=== PATIENT | male | born 1980 | race Caucasian/White ===

== ENCOUNTER 2017-03-30 19:42 | Emergency (ER) | payer SELFPAY ==
[2017-03-30 19:42] VITALS: BMI 25.3
[2017-03-30 19:57] VITALS: BP 130/85; PULSE 89; RESP 18; TEMP 98.6; O2SAT 95
[2017-03-30] MEDS ORDERED: Sodium Chloride 0.9% 1,000 ML IV STA (20:01)
--- NOTE | 2017-03-30 20:04 | ED PDOC ---
Arrival/HPI - General Chief Complaint: Abdominal Pain Time Seen by Provider: 03/30/17 19:47 - History of Present Illness Narrative History of Present Illness (Text): 03/30/17 20:01 36 yo male, no prior hx presents with epigastric abdominal pain since yesterday. pt states pain started after he consumed etoh yesterday. denies drinkning today. reports nausea, no vomiting, no diarrhea, no other complaints. Past Medical History - Infectious Disease Hx of Infectious Diseases: None - Psychiatric Hx Substance Use: Yes (occasional marijuana) - Anesthesia Hx Anesthesia: No Hx Anesthesia Reactions: No Hx Malignant Hyperthermia: No Family/Social History - Physician Review Nursing Documentation Reviewed: Yes Family/Social History: Unknown Family HX Smoking Status: Current Some Days Smoker Hx Alcohol Use: Yes Frequency of alcohol use: Socially Hx Substance Use: Yes (occasional marijuana) Allergies/Home Meds Allergies/Adverse Reactions: Allergies No Known Allergies Allergy (Unverified 04/29/16 12:14) Review of Systems - Review of Systems Constitutional: Normal Eyes: Normal ENT: Normal Respiratory: Normal Cardiovascular: Normal Gastrointestinal: Abdominal Pain Genitourinary Male: Normal Musculoskeletal: Normal Skin: Normal Neurological: Normal Endocrine: Normal Hemo/Lymphatic: Normal Psychiatric: Normal Physical Exam Vital Signs Temp Pulse Resp BP Pulse Ox 03/30/17 19:55 98.6 F 89 18 130/85 95 Temperature: Afebrile Blood Pressure: Normal Pulse: Regular Respiratory Rate: Normal Appearance: Positive for: Well-Appearing, Non-Toxic, Comfortable Pain Distress: None Mental Status: Positive for: Alert and Oriented X 3 - Systems Exam Head: Present: Atraumatic, Normocephalic Pupils: Present: PERRL Extroacular Muscles: Present: EOMI Conjunctiva: Present: Normal Mouth: Present: Moist Mucous Membranes Neck: Present: Normal Range of Motion Respiratory/Chest: Present: Clear to Auscultation, Good Air Exchange. No: Respiratory Distress, Accessory Muscle Use Cardiovascular: Present: Regular Rate and Rhythm, Normal S1, S2. No: Murmurs Abdomen: Present: Tenderness (epigastric), Normal Bowel Sounds. No: Distention , Peritoneal Signs, Rebound, Guarding Back: Present: Normal Inspection Upper Extremity: Present: Normal Inspection. No: Cyanosis, Edema Lower Extremity: Present: Normal Inspection. No: Edema Neurological: Present: GCS=15, CN II-XII Intact, Speech Normal Skin: Present: Warm, Dry, Normal Color. No: Rashes Psychiatric: Present: Alert, Oriented x 3, Normal Insight, Normal Concentration Medical Decision Making ED Course and Treatment: 03/30/17 20:03 ro pud gastritis, alcohol gastritis, pancreatitis. noted recent neg us for gallbladder pathology. labs imaging pendign 03/30/17 20:41 pt observed on phone in nad. states pain significantly improved. pending ua. 03/30/17 23:39 pt observed to be sleeping in nad. abd soft no ttp. advise outpt f/u and return precautions - Lab Interpretations Lab Results: 03/30/17 20:00 03/30/17 20:00 Lab Results 03/30/17 20:45: Urine Color Yellow, Urine Appearance Clear, Urine pH 6.0, Ur Specific [place] 1.010, Urine Protein Negative, Urine Glucose (UA) Negative, Urine Ketones 15 H, Urine Blood Small H, Urine Nitrate Negative, Urine Bilirubin Negative, Urine Urobilinogen 0.2, Ur Leukocyte Esterase Negative, Urine RBC 2 - 5, Urine WBC 1 - 3, Ur Epithelial Cells 1 - 3, Urine Bacteria Few 03/30/17 20:00: Sodium 138, Potassium 4.2, Chloride 101, Carbon Dioxide 28, Anion Gap 13, BUN 15, Creatinine 0.9, Est GFR ( Amer) > 60, Est GFR (Non- Af Amer) > 60, Random Glucose 80, Calcium 9.7, Total Bilirubin 0.8, AST 29, ALT 26, Alkaline Phosphatase 74, Total Protein 7.7, Albumin 4.5, Globulin 3.2, Albumin/Globulin Ratio 1.4, Lipase 83 03/30/17 20:00: PT 12.3, INR 1.13 H, APTT 27.3 03/30/17 20:00: WBC 8.6 D, RBC 4.74, Hgb 14.8, Hct 41.9 L, MCV 88.4, MCH 31.2, MCHC 35.3, RDW 14.5, Plt Count 237, MPV 8.9, Gran % 62.7, Lymph % (Auto) 27.5, [place] % (Auto) 9.6 H, Eos % (Auto) 0.1 L, Baso % (Auto) 0.1, Gran # 5.37, Lymph # 2.4, [place] # 0.8 H, Eos # 0.0, Baso # 0.01 - Medication Orders Current Medication Orders: Discontinued Medications Acetaminophen (Tylenol 325mg Tab) 650 mg PO STAT STA Stop: 03/30/17 20:33 Last Admin: 03/30/17 20:39 Dose: 650 mg MAR Pain/Vitals Document 03/30/17 20:39 CNR (Rec: 03/30/17 20:39 CNR [id number]) Pain Reassessment Is This A Pain ReAssessment? Yes Location Pain Location Body Lay Brother Sodium Chloride (Sodium Chloride 0.9%) 1,000 mls @ 1,000 mls/hr IV .Q1H STA Stop: 03/30/17 21:00 Last Admin: 03/30/17 20:14 Dose: 1,000 mls/hr eMAR Start Stop Document 03/30/17 20:14 CNR (Rec: 03/30/17 20:14 CNR [id number]) Intravenous Solution Start Date 03/30/17 Start Time 20:14 Ondansetron HCl (Zofran Inj) 4 mg IVP STAT STA Stop: 03/30/17 20:02 Last Admin: 03/30/17 20:14 Dose: 4 mg IVP Administration Document 03/30/17 20:14 CNR (Rec: 03/30/17 20:14 CNR [id number]) Charges for Administration # of IVP Administrations 1 Pantoprazole Sodium (Protonix Inj) 40 mg IVP STAT STA Stop: 03/30/17 20:02 Last Admin: 03/30/17 20:14 Dose: 40 mg IVP Administration Document 03/30/17 20:14 CNR (Rec: 03/30/17 20:14 CNR [id number]) Charges for Administration # of IVP Administrations 1 Disposition/Present on Arrival - Present on Arrival Any Indicators Present on Arrival: No History of DVT/PE: No History of Uncontrolled Diabetes: No Urinary Catheter: No History of Decub. Ulcer: No History Surgical Site Infection Following: None - Disposition Have Diagnosis and Disposition been Completed?: Yes Diagnosis: Abdominal pain Disposition: HOME/ ROUTINE Disposition Time: 10:00 Condition: STABLE Discharge Instructions (ExitCare): Acute Abdominal Pain (ED) Additional Instructions: please follow up with specialist. return to er with worsening symptoms or concerns. Prescriptions: Famotidine [Pepcid] 20 mg PO DAILY #20 tab Referrals: [facility] [Outside] - Follow up with primary [facility] at [facility] [place] [Outside] - Follow up with primary [facility] Brett Henderson, [Primary Care Provider] - Follow up with primary Blas Coker MD [Staff Provider] - Follow up with primary Forms: [employer] (Kazakh)
[2017-03-30 20:22] LABS: BASO # 0.01 K/mm3 (0.0-2.0); BASO % 0.1 % (0.0-3.0); EOS % 0.1 % (1.5-5.0); GRAN # 5.37 (1.4-6.5); GRAN % 62.7 % (50.0-68.0); HEMATOCRIT 41.9 % (42.0-52.0); LYMPH # 2.4 (1.2-3.4); LYMPH % 27.5 % (22.0-35.0); MEAN CELL VOLUME 88.4 fl (80.0-105.0); MEAN CORPUSCULAR HEMOGLOBIN 31.2 pg (25.0-35.0); MEAN CORPUSCULAR HGB CONC 35.3 g/dl (31.0-37.0); MEAN PLATELET VOLUME 8.9 fl (7.0-11.0); MONO # 0.8 (0.1-0.6); MONO % 9.6 % (1.0-6.0); RED CELL DISTRIBUTION WIDTH 14.5 % (11.5-14.5); WHITE BLOOD COUNT 8.6 10^3/ul (4.5-11.0)
[2017-03-30 20:32] LABS: ALB/GLOB RATIO 1.4 (1.1-1.8); ALKALINE PHOSPHATASE 74 U/L (38-126); ALT/SGPT 26 U/L (7-56); AST/SGOT 29 U/L (17-59); BILIRUBIN,TOTAL 0.8 mg/dL (0.2-1.3); BLOOD UREA NITROGEN 15 mg/dL (7-21); CALCIUM 9.7 mg/dL (8.4-10.5); CARBON DIOXIDE 28 mmol/L (21-33); CHLORIDE 101 mmol/L (98-107); GFR AFRICAN-AMERICAN > 60; GLUCOSE,RANDOM 80 mg/dL (70-110); LIPASE 83 U/L (23-300); POTASSIUM 4.2 mmol/L (3.6-5.0); SODIUM 138 mmol/L (132-148); TOTAL PROTEIN 7.7 g/dL (5.8-8.3)
[2017-03-30 20:51] LABS: INR 1.13 (0.93-1.08)
[2017-03-30 20:52] LABS: PARTIAL THROMBOPLASTIN TIME 27.3 Seconds (25.1-36.5)
[2017-03-30 21:16] LABS: URINE BILIRUBIN NEGATIVE (NEGATIVE); URINE BLOOD SMALL (NEGATIVE); URINE GLUCOSE (UA) NEGATIVE (NEGATIVE); URINE KETONE 15 mg/dL (NEGATIVE); URINE LEUKOCYTE ESTERASE NEGATIVE Leu/uL (NEGATIVE); URINE PROTEIN NEGATIVE mg/dL (<30 mg/dL); URINE UROBILINOGEN 0.2 E.U./dL (<1 E.U./dL)
[2017-03-30 21:27] LABS: URINE APPEARANCE CLEAR (CLEAR); URINE COLOR YELLOW (YELLOW)
[2017-03-30 21:31] LABS: URINE BACTERIA FEW (NEG)
== END 2017-03-30 21:36 | disposition home or self-care (01) ==
LOC: ED 19:42
DX: R10.13 Epigastric pain (principal)
CPT/HCPCS: 80053; 81001; 83690; 85025; 85610; 85730; 96374; 96375; 99283; C9113; J2405; J7040

== ENCOUNTER 2018-01-27 09:00 | Emergency (ER) | payer OTHER ==
[2018-01-27 09:28] VITALS: RESP 18; O2SAT 98; BMI 24.4
[2018-01-27] MEDS ORDERED: Sodium Chloride 0.9% 1,000 ML IV STA (09:50)
--- NOTE | 2018-01-27 10:03 | ED PDOC ---
Arrival/HPI - General Time Seen by Provider: 01/27/18 09:25 Historian: Patient - History of Present Illness Narrative History of Present Illness (Text): 01/27/18 09:45 37 year old Fijian-speaking male, with no significant past medical history, who presents to the Emergency department complaining of aching abdominal pain for a day. Patient notes associated nausea. Patient denies vomiting, diarrhea, or any other complaints. Time/Duration: 24 hours (Patient notes abdominal pain for 1 day) Symptom Onset: Sudden Symptom Course: Unchanged Quality: Aching Activities at Onset: Light Past Medical History - Provider Review Nursing Documentation Reviewed: Yes - Infectious Disease Hx of Infectious Diseases: None - Psychiatric Hx Substance Use: Yes (occasional marijuana) - Anesthesia Hx Anesthesia: No Hx Anesthesia Reactions: No Hx Malignant Hyperthermia: No Family/Social History - Physician Review Nursing Documentation Reviewed: Yes Family/Social History: No Known Family HX Smoking Status: Current Some Days Smoker Hx Alcohol Use: Yes Hx Substance Use: Yes (occasional marijuana) Allergies/Home Meds Allergies/Adverse Reactions: Allergies No Known Allergies Allergy (Unverified 01/27/18 10:52) Review of Systems - Physician Review All systems were reviewed & negative as marked: Yes - Review of Systems Gastrointestinal: Abdominal Pain (patient notes abdominal pain ), Diarrhea (patient denies diarrhea), Nausea (patient notes nausea). absent: Normal, Vomiting (patient denies vomiting) Physical Exam Vital Signs Reviewed: Yes Vital Signs Temp Pulse Resp BP Pulse Ox 01/27/18 09:27 97.8 F 57 L 18 112/57 L 98 Temperature: Afebrile Blood Pressure: Normal Pulse: Regular Respiratory Rate: Normal Appearance: Positive for: Well-Appearing, Non-Toxic Pain Distress: Mild Mental Status: Positive for: Alert and Oriented X 3 - Systems Exam Head: Present: Atraumatic, Normocephalic Pupils: Present: PERRL Extroacular Muscles: Present: EOMI Conjunctiva: Present: Normal Mouth: Present: Moist Mucous Membranes Neck: Present: Normal Range of Motion Respiratory/Chest: Present: Clear to Auscultation, Good Air Exchange. No: Respiratory Distress, Accessory Muscle Use Cardiovascular: Present: Regular Rate and Rhythm, Normal S1, S2. No: Murmurs Abdomen: Present: Tenderness (epigastric tenderness). No: Distention, Peritoneal Signs Back: Present: Normal Inspection Upper Extremity: Present: Normal Inspection. No: Cyanosis, Edema Lower Extremity: Present: Normal Inspection. No: Edema Neurological: Present: GCS=15, CN II-XII Intact, Speech Normal Skin: Present: Warm, Dry, Normal Color. No: Rashes Psychiatric: Present: Alert, Oriented x 3, Normal Insight, Normal Concentration Medical Decision Making ED Course and Treatment: 01/27/18 09:45 Impression: 37 year old male who presents to the Emergency department for abdominal pain for a day. Differential Diagnosis included but are not limited to: suspect gastrits vs pud. Plan: -- Labs -- Protonix Inj, 40 mg IVP -- IV fluids -- Zofran Inj, 4mg IVP -- Urinalysis -- Reassess and disposition Prior Visits: Notes and results from previous visits were reviewed. Progress Notes: 01/27/18 11:15 Abdomen soft. Patient feels better. Bedside US shows no cholelithiasis. Patient is stable for discharge. 01/27/18 12:37 labs neg. pt feels imrpoved. stable ibarra c. - Medication Orders Current Medication Orders: Sodium Chloride (Sodium Chloride 0.9%) 1,000 mls @ 1,000 mls/hr IV .Q1H STA Stop: 01/27/18 10:49 Ondansetron HCl (Zofran Inj) 4 mg IVP STAT STA Stop: 01/27/18 09:51 Pantoprazole Sodium (Protonix Inj) 40 mg IVP STAT STA Stop: 01/27/18 09:51 - Scribe Statement The provider has reviewed the documentation as recorded by the Scribsaleem Seay All medical record entries made by the Scribe were at my direction and personally dictated by me. I have reviewed the chart and agree that the record accurately reflects my personal performance of the history, physical exam, medical decision making, and the department course for this patient. I have also personally directed, reviewed, and agree with the discharge instructions and disposition. Disposition/Present on Arrival - Present on Arrival Any Indicators Present on Arrival: No History of DVT/PE: No History of Uncontrolled Diabetes: No Urinary Catheter: No History Surgical Site Infection Following: None - Disposition Have Diagnosis and Disposition been Completed?: Yes Diagnosis: Abdominal pain Disposition: HOME/ ROUTINE Disposition Time: 11:30 Condition: STABLE Discharge Instructions (ExitCare): Acute Abdomen (Belly Pain), Adult (DC) Print Language: BAHRAINI Additional Instructions: return to er with worsening symptomsor concerns. Prescriptions: Famotidine [Pepcid] 20 mg PO DAILY #20 tab Referrals: [facility] [Outside] - Follow up with primary [facility] at [facility] [place] [Outside] - Follow up with primary Blas Coker MD [Staff Provider] - Follow up with primary Forms: [employer] (Maltese)
[2018-01-27 10:25] LABS: BASO # 0.01 K/mm3 (0.0-2.0); BASO % 0.1 % (0.0-3.0); EOS % 0.3 % (1.5-5.0); GRAN # 4.22 (1.4-6.5); GRAN % 58.5 % (50.0-68.0); HEMOGLOBIN 14.7 g/dL (14.0-18.0); LYMPH # 2.2 (1.2-3.4); LYMPH % 29.9 % (22.0-35.0); MEAN CELL VOLUME 89.3 fl (80.0-105.0); MEAN CORPUSCULAR HEMOGLOBIN 30.9 pg (25.0-35.0); MEAN CORPUSCULAR HGB CONC 34.7 g/dl (31.0-37.0); MEAN PLATELET VOLUME 9.2 fl (7.0-11.0); MONO # 0.8 (0.1-0.6); MONO % 11.2 % (1.0-6.0); RBC 4.75 10^6/uL (3.5-6.1); RED CELL DISTRIBUTION WIDTH 13.9 % (11.5-14.5); WHITE BLOOD COUNT 7.2 10^3/ul (4.5-11.0)
[2018-01-27 10:32] LABS: INR 1.12; PARTIAL THROMBOPLASTIN TIME 28.9 Seconds (25.1-36.5); PROTHROMBIN TIME 12.9 SECONDS (9.4-12.5)
[2018-01-27 10:56] LABS: ALB/GLOB RATIO 1.2 (1.1-1.8); ALBUMIN 3.6 g/dL (3.0-4.8); ALT/SGPT 33 U/L (7-56); AST/SGOT 25 U/L (17-59); BLOOD UREA NITROGEN 13 mg/dL (7-21); CALCIUM 8.7 mg/dL (8.4-10.5); GFR NON-AFRICAN AMERICAN > 60; LIPASE 51 U/L (23-300)
[2018-01-27 11:00] LABS: PH,URINE 7.5 (4.7-8.0); URINE APPEARANCE CLEAR (CLEAR); URINE BILIRUBIN NEGATIVE (NEGATIVE); URINE BLOOD TRACE-INTACT (NEGATIVE); URINE COLOR YELLOW (YELLOW); URINE GLUCOSE (UA) NEGATIVE (NEGATIVE); URINE LEUKOCYTE ESTERASE NEGATIVE Leu/uL (NEGATIVE); URINE PROTEIN TRACE mg/dL (<30 mg/dL)
[2018-01-27 11:18] VITALS: BP 123/77; PULSE 59
[2018-01-27 11:22] LABS: URINE BACTERIA MANY (NEG); URINE EPITHELIAL CELLS 0 - 2 /hpf (0-5); URINE WBC 0 - 2 /hpf (0-6)
[2018-01-27 11:47] VITALS: TEMP 98
--- NOTE | 2018-01-27 14:23 | CARD ---
APPROVED REPORT Date of service: 01/27/2018 EKG Measurement Heart [id number] <Conclusion> Sinus bradycardia Otherwise normal ECG
== END 2018-01-27 11:30 | disposition home or self-care (01) ==
LOC: ED 09:00
DX: R10.9 Unspecified abdominal pain (principal)
CPT/HCPCS: 80053; 81001; 83690; 83735; 85025; 85610; 85730; 93005; 96361; 96374; 96375; 99283; C9113; J2405; J7030